=== PATIENT | female | born 1935 | race Two or more races ===

== ENCOUNTER 2020-07-03 19:34 | Inpatient (IN) | payer SELFPAY ==
[~2020-07-03] VITALS: Ht 157.5 cm; Wt 60.4 kg
[2020-07-03 19:45] VITALS: BP 140/70
--- NOTE | 2020-07-03 19:48 | NUR ---
ED Nurse Note: Patient was brought in by ambulance RA # [id number] from home c/o body aches x one week. Per EMS, patient was seen and discharged from another facility [facility] this week but s/s has not gotten better. Patient presented with distendnt abdomen, AAO x3, VSS at this time.
--- NOTE | 2020-07-03 19:55 | Emergency Room Report ---
History of Present Illness General Chief Complaint: Pain Present Illness HPI Disclaimer: Please note that this report is being documented using DRAGON technology. This can lead to erroneous entry secondary to incorrect interpretation by the dictating instrument. HPI: 85-year-old female history of hypertension presented with complaints of mild urinary frequency. Family reported hematochezia in addition to body pains but patient denies any body pains to me. No report of fever. No sick contacts. Denies abdominal pain. PMH: Hypertension PSH: Reviewed Social Hx: Denies smoking drinking or drug use Allergies: Coded Allergies: No Known Allergies (Unverified , 07/03/20) COVID-19 Screening Contact w/high risk pt: Yes Experienced COVID-19 symptoms?: Yes COVID-19 Testing performed AUTOMOTIVE VEHICLE INSPECTOR: No Patient History Reviewed Nursing Documentation: PMH: Agreed; PSxH: Agreed Nursing Documentation-PMH Hx Cardiac Problems: Yes Review of Systems All Other Systems: negative except mentioned in HPI Physical Exam Vital Signs Date Time Temp Pulse Resp B/P (MAP) Pulse Ox O2 Delivery O2 Flow Rate FiO2 07/03/20 19:31 98.4 74 16 140/70 (93) 98 Room Air Sp02 EP Interpretation: reviewed, normal General Appearance: well appearing, no apparent distress Head: normocephalic, atraumatic Eyes: bilateral eye PERRL, bilateral eye EOMI ENT: hearing grossly normal, moist mucus membranes Neck: full range of motion, supple Respiratory: lungs clear, normal breath sounds, no rhonchi, no respiratory distress, no retraction, no wheezing Cardiovascular #1: normal peripheral pulses, regular rate, rhythm, no murmur Gastrointestinal: non tender, soft, no guarding, other - Mild distention Neurologic: alert, oriented x3, no focal defects Skin: normal color, warm/dry Procedures Critical Care Time Critical Care Time Critical care is made on patient due to presentation with COVID-19 pneumonia requiring my acute intervention. Critical care time is 38 minutes and excludes procedures. Medical Decision Making Diagnostic Impression: Primary Impression: COVID-19 Additional Impressions: Multifocal pneumonia Generalized weakness ER Course MDM: Differential included but not limited to COVID-19 pneumonia, GI bleed, gastroenteritis, gastritis, anemia to name a few Clinical course-IV inserted, laboratory studies were sent. Laboratory studies demonstrated mild leukocytosis, electrolytes showed elevated BUN and creatinine. Patient did appear mildly dehydrated, blood pressure borderline but improved with IV fluids. Patient's COVID-19 testing was positive. Chest x-ray showed evidence of multifocal pneumonia. Given IV antibiotics, IV Decadron. Will be admitted to the medical floor. I believe she requires admission due to her borderline hypoxia, age with evidence of diffuse infiltrates on chest x-ray Labs - Laboratory Tests Test 07/03/20 19:40 White Blood Count 11.6 K/UL (4.8-10.8) H Red Blood Count 3.11 M/UL (4.20-5.40) L Hemoglobin 10.2 G/DL (12.0-16.0) L Hematocrit 29.6 % (37.0-47.0) L Mean Corpuscular Volume 95 FL (80-99) Mean Corpuscular Hemoglobin 32.7 PG (27.0-31.0) H Mean Corpuscular Hemoglobin Concent 34.3 G/DL (32.0-36.0) Red Cell Distribution Width 18.5 % (11.6-14.8) H Platelet Count 111 K/UL (150-450) L Mean Platelet Volume 8.2 FL (6.5-10.1) Neutrophils (%) (Auto) 80.2 % (45.0-75.0) H Lymphocytes (%) (Auto) 15.0 % (20.0-45.0) L Monocytes (%) (Auto) 4.4 % (1.0-10.0) Eosinophils (%) (Auto) 0.1 % (0.0-3.0) Basophils (%) (Auto) 0.3 % (0.0-2.0) Prothrombin Time 12.9 SEC (9.30-11.50) H Prothrombin Time INR 1.2 (0.9-1.1) H Activated Partial Thromboplast Time 47 SEC (23-33) H Sodium Level 134 MMOL/L (136-145) L Potassium Level 5.3 MMOL/L (3.5-5.1) H Chloride Level 106 MMOL/L (98-107) Carbon Dioxide Level 21 MMOL/L (21-32) Anion Gap 7 mmol/L (5-15) Blood Urea Nitrogen 65 mg/dL (7-18) H Creatinine 2.0 MG/DL (0.55-1.30) H Estimated Glomerular Filtration Rate 23.7 mL/min (>60) Glucose Level 121 MG/DL (74-106) H Lactic Acid Level 2.50 mmol/L (0.4-2.0) H Calcium Level 7.4 MG/DL (8.5-10.1) L Total Bilirubin 3.0 MG/DL (0.2-1.0) H Direct Bilirubin 2.4 MG/DL (0.0-0.3) H Aspartate Amino Transferase (AST) 113 U/L (15-37) H Alanine Aminotransferase (ALT) 43 U/L (12-78) Alkaline Phosphatase 398 U/L (46-116) H Total Creatine Kinase 108 U/L (26-308) Troponin I 0.045 ng/mL (0.000-0.056) Pro-B-Type Natriuretic Peptide Pending Total Protein 5.0 G/DL (6.4-8.2) L Albumin 1.7 G/DL (3.4-5.0) L Globulin 3.3 g/dL Albumin/Globulin Ratio 0.5 (1.0-2.7) L Lipase 131 U/L (73-393) Microbiology Date/Time Source Procedure Growth Status 07/03/20 19:40 Nasopharynx SARS-CoV-2 RdRp Gene Assay - Final Complete Plan-Plan, admission to the medical floor under Dr. Holloway EKG Diagnostic Results Rate: normal Rhythm: NSR ST Segments: no acute changes Rhythm Strip Diag. Results EP Interpretation: yes Rate: 67 Rhythm: NSR Chest X-Ray Diagnostic Results Chest X-Ray Diagnostic Results : Chest X-Ray Ordered: Yes # of Views/Limited/Complete: 1 View Indication: Shortness of Breath EP Interpretation: Yes Interpretation: other - Multifocal pneumonia, pleural effusion noted, no pneumothorax Electronically Signed by: Roland Schultz MD Last Vital Signs Date Time Temp Pulse Resp B/P (MAP) Pulse Ox O2 Delivery O2 Flow Rate FiO2 07/03/20 19:31 98.4 74 16 140/70 (93) 98 Room Air Disposition: ADMITTED INPATIENT Condition: Serious Roland Schultz M.D. Jul 03, 2020 19:55
--- NOTE | 2020-07-03 19:55 | NUR ---
ED Nurse Note: IV line was established on left AC 18ga, blood collected sent to lab
--- NOTE | 2020-07-03 20:05 | NUR ---
ED Nurse Note: patient stated can not provide urine right now, will try later
[2020-07-03 20:22] LABS: BASOPHILS % (AUTO) 0.3 % (0.0-2.0); EOSINOPHILS % (AUTO) 0.1 % (0.0-3.0); HEMATOCRIT 29.6 % (37.0-47.0); HEMOGLOBIN 10.2 G/DL (12.0-16.0); MEAN CORPUSCULAR VOLUME 95 FL (80-99); MONOCYTES % (AUTO) 4.4 % (1.0-10.0); NEUTROPHILS % (AUTO) 80.2 % (45.0-75.0); PLATELET COUNT 111 K/UL (150-450); RED BLOOD COUNT 3.11 M/UL (4.20-5.40); RED CELL DISTRIBUTION WIDTH 18.5 % (11.6-14.8); WHITE BLOOD COUNT 11.6 K/UL (4.8-10.8)
--- NOTE | 2020-07-03 20:30 | Diagnostic Imaging Report ---
EXAM: XR Chest, 1 View CLINICAL HISTORY: SOB TECHNIQUE: Frontal view of the chest. COMPARISON: No relevant prior studies available. FINDINGS: Lungs: Low lung volumes with multifocal opacities throughout both lungs. Prominent pulmonary vasculature with increased interstitial opacities bilaterally, consistent with interstitial pulmonary edema. Pleural space: Probable small right pleural effusion. No pneumothorax. Heart: Unremarkable. No cardiomegaly. Mediastinum: Unremarkable. Bones/joints: Unremarkable. IMPRESSION: Diffuse throughout both lungs consistent with alveolar edema and/or an acute infectious/inflammatory process such as multifocal pneumonia. Small right pleural effusion.
[2020-07-03 20:39] LABS: INR 1.2 (0.9-1.1)
[2020-07-03 20:58] LABS: ANION GAP 7 mmol/L (5-15); BLOOD UREA NITROGEN 65 mg/dL (7-18); CALCIUM 7.4 MG/DL (8.5-10.1); CARBON DIOXIDE 21 MMOL/L (21-32); CHLORIDE 106 MMOL/L (98-107); POTASSIUM 5.3 MMOL/L (3.5-5.1); SODIUM 134 MMOL/L (136-145)
[2020-07-03 21:08] LABS: ALANINE AMINOTRANSFERASE 43 U/L (12-78); ALBUMIN 1.7 G/DL (3.4-5.0); ALBUMIN/GLOBULIN RATIO 0.5 (1.0-2.7); ALKALINE PHOSPHATASE 398 U/L (46-116); ASPARTATE AMINO TRANSFERASE 113 U/L (15-37); CREATINE KINASE 108 U/L (26-308)
[2020-07-03 21:10] LABS: BILIRUBIN,DIRECT 2.4 MG/DL (0.0-0.3)
--- NOTE | 2020-07-03 21:22 | Diagnostic Imaging Report ---
EXAM: CT Abdomen and Pelvis Without Intravenous Contrast CLINICAL HISTORY: PAIN TECHNIQUE: Axial computed tomography images of the abdomen and pelvis without intravenous contrast. CTDI is 11.1 mGy and DLP is 396.3 mGy-cm. One or more of the following dose reduction techniques were used: automated exposure control, adjustment of the mA and/or kV according to patient size, use of iterative reconstruction technique. COMPARISON: No relevant prior studies available. FINDINGS: Lung bases: Unremarkable. No mass. No consolidation. Pleural space: Multifocal opacities are visualized throughout the lung bases. Small right and trace left pleural effusions. Coronary artery calcifications. Mediastinum: Small hiatal hernia. ABDOMEN: Liver: Cirrhosis with stigmata of portal venous hypertension including paraumbilical varices. Gallbladder and bile ducts: Cholelithiasis. Gallbladder is not well visualized due to surrounding ascites. No ductal dilation. Pancreas: Unremarkable. No ductal dilation. Spleen: Unremarkable. No splenomegaly. Adrenals: Unremarkable. No mass. Kidneys and ureters: Unremarkable. No obstructing stones. No hydronephrosis. Stomach and bowel: Unremarkable. No obstruction. No mucosal thickening. PELVIS: Appendix: No findings to suggest acute appendicitis. Bladder: There is a moderate cystocele. No stones. Reproductive: Unremarkable as visualized. ABDOMEN and PELVIS: Intraperitoneal space: Large volume ascites. Bones/joints: No acute fracture. No dislocation. Soft tissues: Moderate anasarca. Vasculature: Atherosclerotic calcifications of the aortoiliac arteries. Lymph nodes: Unremarkable. No enlarged lymph nodes. IMPRESSION: Cirrhosis with stigmata of portal venous hypertension and large volume ascites as well as moderate diffuse anasarca. Multifocal opacities throughout both lungs, which may indicate an acute infectious/inflammatory process such as multifocal pneumonia. Small right and trace left pleural effusion. Moderate cystocele. Cholelithiasis with obscuration of the margins of the gallbladder wall due to surrounding ascites. Right upper quadrant ultrasound could be performed to further evaluate if clinically indicated.
[2020-07-03] MEDS ORDERED: Azithromycin 500 MG in NS 275 ML IV ONE (21:30)
[2020-07-03] MEDS ORDERED: cefTRIAXone 1 GM in NS 55 ML IVPB ONE (22:15)
--- NOTE | 2020-07-03 23:01 | NUR ---
ED Nurse Note: pt resting in bed, pt states she is unable to provide urine at this time. will continue to monitor.
[2020-07-03 23:45] VITALS: BP 100/62
[2020-07-03] MEDS ORDERED: Enoxaparin 60mg Inj SUBQ ONE (23:45)
--- NOTE | 2020-07-03 23:51 | NUR ---
ED Nurse Note: unable to obtain UA. ERMD aware and at bedside.
--- NOTE | 2020-07-03 23:52 | NUR ---
ED Nurse Note: pt has multiple bruises to left back. ERMD aware.
--- NOTE | 2020-07-03 23:55 | NUR ---
ED Nurse Note: ERMD at bedside to investigate possible uterus prolapse.
[2020-07-04] VITALS (7 sets, daily range): BP systolic 88–105; BP diastolic 42–64
--- NOTE | 2020-07-04 00:45 | NUR ---
ED Nurse Note: All medications administered, pt tolerated well no ss of distress noted.
--- NOTE | 2020-07-04 01:35 | NUR ---
ED Nurse Note: pt resting in bed, no ss of distress noted. will continue to monitor.
--- NOTE | 2020-07-04 02:33 | NUR ---
ED Nurse Note: Report given to ELSIE Fisher on MS unit
--- NOTE | 2020-07-04 02:52 | NUR ---
TRANSFER TO FLOOR: Patient transferred to Med Surg unit per ERMD. Report given to ELSIE Fisher. Pt took all belongings. Pt transferred to unit with 1 METALLURGICAL TESTER.
--- NOTE | 2020-07-04 03:05 | NUR ---
NURSE NOTES: Received report from Genia ZIMMERMAN at ER.The patient is alert and oriented x2 [place] speaker. She is on Room air with Resp even and unlabored.She was moaning of some pain in her abdomen area. The abdomen is distended, CT abdomen was done and it shows Liver cirrhosis, Prolapse uterus. The skin is intact with patches of hyperpigmentation noted on the back. The left lower leg has a +2 edema. The left leg was raised up with a pillow as indicated.The patient is bedbound and was help with turning and re-positioning as indicated. The skin is intact no open sore noted at this time. The patient is on contact and droplet precaution due to positive Covid-19 test. The bed in low level, siderails up x2, call light within easy reach. Will followup with Dr. Holloway for admission order as indicated
--- NOTE | 2020-07-04 03:30 | NUR ---
NURSE NOTES: Received admission orders from Dr. Holloway, all orders were executed as indicated.
[2020-07-04] MEDS ORDERED: oxyCODONE 5mg IR tab ORAL PRN (04:45)
[2020-07-04] MEDS ORDERED: Milk of Magnesia 30ml Ud ORAL PRN (04:45)
--- NOTE | 2020-07-04 06:20 | NUR ---
NURSE NOTES: The patient has some level of anxiousness, she removed her yellow gown dropped it on the floor that she doesn't want it. A calm environment was provided. Will continue to monitor as indicated
--- NOTE | 2020-07-04 08:18 | NUR ---
NURSE NOTES: Social service consult got cancelled due to patient's son called and RN got his phone number. Tim Meyers [phone]. Dr. Holloway is aware.
[2020-07-04] MEDS: Docusate 250mg cap ORAL SCH ×3 (08:40→17:44)
[2020-07-04] MEDS: Spironolactone 50mg tab ORAL SCH ×2 (08:40→09:00)
[2020-07-04] MEDS ORDERED: Furosemide 40mg tab ORAL SCH (09:00)
--- NOTE | 2020-07-04 09:15 | History and Physical Report ---
DATE OF ADMISSION: 07/03/2020 CHIEF COMPLAINT: COVID pneumonia. HISTORY OF PRESENT ILLNESS: The patient is an 85-year-old female that was apparently brought in by family members with complaints of body aches, malaise and weakness. The patient is a poor historian, is unable to provide any history and family did not leave any contact number. On evaluation in the emergency room, the patient was COVID positive. She was noted to have ascites, leukocytosis. She had an elevated creatinine of 2 and elevated liver function tests. She is now admitted for further evaluation and care. PAST MEDICAL HISTORY: Unknown. PAST SURGICAL HISTORY: Unknown. CURRENT MEDICATIONS: Unknown. FAMILY HISTORY: Unknown. SOCIAL HISTORY: There is no known history of tobacco, ethanol, or drugs. REVIEW OF SYSTEMS: Unobtainable from the patient as she is confused. PHYSICAL EXAMINATION: VITAL SIGNS: Temperature 97.8, pulse 91, respirations 19, blood pressure 105/54. GENERAL: The patient is a thin, frail, elderly female, no distress. HEENT: Head, normocephalic, atraumatic. Sclerae anicteric. Oropharynx clear. NECK: Supple. HEART: Regular rate and rhythm. LUNGS: Clear anteriorly. ABDOMEN: Soft, distended with a fluid wave. LABORATORY DATA: Labs were reviewed. ASSESSMENT: This is an 85-year-old female. She appeared to have chronic liver disease and is now admitted with COVID-19 pneumonia. She is stable on room air though. PLAN: ID consultation. Start Aldactone. Check a hepatitis panel. We will try to contact family. Nba Holloway M.D. DR: GALEN JOB#: [id number] CC:
--- NOTE | 2020-07-04 11:02 | NUR ---
NURSE NOTES: Patient is restlessness and ex's are cold to touch. RN checked patient's BP, BP is 83/42, pulse is 57, o2sat is 84-85% in room air and patient noted with non-productive cough. RN elevated patient's lower ex's and monitored BP. BP is still low but patient is awake, talkative. Applied on o2@2L via NC. O2sat went up to 97%. Breathing is even and unlabored. RN called DR. Holloway and relayed patient's condition with new order to give albumin. Patient consumed 10% of breakfast and refused to take meds. Explained risks and benefits. Will continue to monitor.
--- NOTE | 2020-07-04 13:00 | NUR ---
NURSE NOTES: RN informed Dr. Holloway about prolapsed uterine, MD is aware with no new order.
--- NOTE | 2020-07-04 17:26 | NUR ---
NURSE NOTES: Patient's BP is 88/44, RN placed patient on trendelenburg position but no changes in BP. Patient denies chest pain or SOB, awake, verbally responsive. RN received order from Dr. Holloway to give NS 250cc bolus x1.
[2020-07-04] MEDS ORDERED: NS 250 ML IVPB SCH (17:30)
--- NOTE | 2020-07-04 19:00 | NUR ---
NURSE NOTES: given NS 250cc bolus earlier and latest BP is 104/64.Patient is stable.
--- NOTE | 2020-07-04 20:00 | NUR ---
NURSE HAND-OFF: Important Events on Shift: low BP, bolus albumin and NS given, latest BP 104/64, refused to eat or take meds. Patient Status: stable Diet: low sodium pureed Pending Orders: Pending Results/Labs: Pending MD notification: Latest Vital Signs: Temperature 98.8 , Pulse 62 , B/P 104 /64 , Respiratory Rate 18 , O2 SAT 93 , Room Air, O2 Flow Rate 2.0 . Vital Sign Comment: Latest Madden Fall Score: 45 Fall Risk: High Risk Safety Measures: Call light Within Reach, Bed Alarm Zone 2, Side Rails Side Rails x2, Bed position Low and Locked. Fall Precautions: Yellow Socks Yellow Gown Door Sign Patient Fall Education Report given to Phillip and endorsed plan of care.
--- NOTE | 2020-07-04 20:02 | NUR ---
The patient is alert and orient x1 was noted with confusion and agitations and a calm environment was provided as indicated.The patient still has a distended abdomen and keeps his IV line on the left AC 18g that is patent and asymptomatic. She has poor po intake and was encouraged to drink more fluids.The bed in low and locked level, call light within easy reach. will continue to monitor as indicated.
[2020-07-05] VITALS (7 sets, daily range): BP systolic 66–104; BP diastolic 39–57
--- NOTE | 2020-07-05 07:15 | NUR ---
NURSE HAND-OFF: Important Events on Shift:Hypotension, continous 2 liters via NC Patient Status: Diet: Pending Orders: Pending Results/Labs: Pending MD notification: Latest Vital Signs: Temperature 97.2 , Pulse 61 , B/P 104 /51 , Respiratory Rate 18 , O2 SAT 93 , Room Air, O2 Flow Rate 2.0 . Vital Sign Comment: Latest Madden Fall Score: 45 Fall Risk: High Risk Safety Measures: Call light Within Reach, Bed Alarm Zone 2, Side Rails Side Rails x2, Bed position Low and Locked. Fall Precautions: Yellow Socks Yellow Gown Door Sign Patient Fall Education Report given to .
[2020-07-05] MEDS ORDERED: NS 250 ML IVPB SCH (08:30)
--- NOTE | 2020-07-05 08:35 | NUR ---
NURSE NOTES: 8:00am RN made around patient is resting in bed noted with pursed lip breathing, change of LOC,patient spontaneously opens her eyes but does not follow commands,non-verbal @ this time.Brazilian speaking skilled nursing professional tried to talk to the patient in Brazilian but patient is non-verbal. Upper and lower ex's cold to touch,still with edema 2(+). weak pulse with 43-47 pulse and O2sat of 84-91% with oxygen 5L/min with NC. BP is 91/57.Blood sugar is 101mg/dl, no s/s of bleeding,patient's abdomen is still distended. RN paged doctor Holloway and relayed patient's condition with new order to do stat ABG, EKG, labs. 0820 RT was called for ABG, abnormal result and EKG done. Labs were ordered 08:35 TEACHER LEARNING DISABLED was called due to change of LOC, bradycardia and abnormal ABG result with O2sat of 88%, TEACHER LEARNING DISABLED arrived and took over. RN gave report to the TEACHER LEARNING DISABLED nurse. [address] Holloway's order. BP is 94/52, pulse 44-47
--- NOTE | 2020-07-05 08:49 | NUR ---
NURSE NOTES: Received order to transfer patient to [facility]. Charge nurse and warehouse general laborer is aware.Awaiting for the bed.
--- NOTE | 2020-07-05 09:00 | NUR ---
NURSE NOTES: Patient noted with ecchymosis on left and right hip and upper and lower back, no episode of fall or bump,patient's PLT is 111 with liver cirrhosis and patient got lovenox 50mg in the ER on 07/03 night. No s/s s/s of bleeding @ this time. Re-position done, applied optifoam and heels are floated on pillows to off the load.
--- NOTE | 2020-07-05 09:08 | General Progress Note ---
Subjective ROS Limited/Unobtainable: No Constitutional: Reports: malaise, weakness HEENT: Reports: no symptoms Cardiovascular: Reports: no symptoms Respiratory: Reports: shortness of breath Gastrointestinal/Abdominal: Reports: abdomen distended Genitourinary: Reports: no symptoms Neurologic/Psychiatric: Reports: pre-existing deficit Endocrine: Reports: no symptoms Hematologic/Lymphatic: Reports: anemia Allergies: Coded Allergies: No Known Allergies (Unverified , 07/03/20) All Systems: reviewed and negative except above Subjective more lethargic and drowsy. abg with met acidosis. BP dropping. HR dropping. on steroids. now on o2 Objective Last 24 Hour Vital Signs Date Time Temp Pulse Resp B/P (MAP) Pulse Ox O2 Delivery O2 Flow Rate FiO2 07/05/20 04:00 97.2 61 104/51 (68) 07/05/20 00:00 98.1 57 96/52 (67) 07/04/20 21:00 Nasal Cannula 2.0 07/04/20 20:00 98.5 58 98/59 (72) 07/04/20 19:00 62 104/64 (77) 07/04/20 16:00 98.8 57 18 88/44 (59) 93 07/04/20 12:00 98.1 58 19 91/48 (62) 91 Intake and Output 07/04/20 07/05/20 19:00 07:00 Intake Total 700 ml 75 ml Balance 700 ml 75 ml Intake Oral 75 ml IV Total 350 ml Other 350 ml # Voids 3 # Bowel Movements 1 1 Laboratory Tests 07/04/20 11:30: POC Whole Blood Glucose 125H 07/05/20 08:19: Arterial Blood pH 7.231*L, Arterial Blood Partial Pressure CO2 23.8*L, Arterial Blood Partial Pressure O2 70.9L, Arterial Blood HCO3 9.8*L, Arterial Blood Oxygen Saturation 91.5L, Arterial Blood Base Excess -16.1*L, Yogesh Test Positive 07/05/20 08:39: POC Whole Blood Glucose 101 Height (Feet): 5 Height (Inches): 2.00 Weight (Pounds): 133 General Appearance: lethargic, confused Respiratory/Chest: lungs clear Abdomen: normal bowel sounds, soft, distended Edema: no edema noted Leg (L), no edema noted Leg (R) Neurologic: disoriented, unresponsive Assessment/Plan Problem List: (1) Shock ICD Codes: R57.9 - Shock, unspecified SNOMED: 98857175 (2) Cirrhosis ICD Codes: K74.60 - Unspecified cirrhosis of liver SNOMED: 48918650 (3) Diabetes ICD Codes: E11.9 - Type 2 diabetes mellitus without complications SNOMED: 96739603 (4) COVID-19 ICD Codes: U07.1 - COVID-19 SNOMED: 432910835 (5) Multifocal pneumonia ICD Codes: J18.9 - Pneumonia, unspecified organism SNOMED: 474414733 Status: deteriorating Assessment/Plan: d/w son leonora pt with worsening shock and hypotension- likely due to covid agrees to conservative management no intubation or chest compression bipap ?pressors aggressive unlikely to help. will likely make pt more uncomfortable in her last moments Nba Holloway MD Jul 05, 2020 09:08
[2020-07-05] MEDS ORDERED: Vancomycin 1 GM in D5W 275 ML IVPB SCH (09:30)
[2020-07-05 09:45] LABS: CALCIUM 7.3 MG/DL (8.5-10.1); CREATININE 1.8 MG/DL (0.55-1.30); POTASSIUM 5.9 MMOL/L (3.5-5.1)
--- NOTE | 2020-07-05 09:51 | NUR ---
NURSE NOTES: Received orders from Dr. Vasquez to d/c all meds, paracentesis, IVF, give morphine ativan PRN due to patient's family chose comfort care for the patient. Addendum: 07/05/20 at 0953 by JEANCARLOS COHEN RN Per Dr. vasquez, no family visit since all the family has covid symptoms.
[2020-07-05 09:55] LABS: ALBUMIN/GLOBULIN RATIO 0.7 (1.0-2.7); BILIRUBIN,TOTAL 3.4 MG/DL (0.2-1.0)
[2020-07-05 09:56] LABS: BILIRUBIN,DIRECT 2.4 MG/DL (0.0-0.3)
[2020-07-05] MEDS ORDERED: LORazepam Inj 2mg/ml 1ml IV PRN (10:00)
[2020-07-05] MEDS ORDERED: Morphine Sulfate 2mg/ml Inj(IV/IM USE ONLY) IVP PRN (10:00)
[2020-07-05] MEDS ORDERED: Piperacillin/Tazobactam 3.375 GM in NS 110 ML IVPB SCH (11:00)
[2020-07-05 12:16] LABS: HEMATOCRIT 33.8 % (37.0-47.0); HEMOGLOBIN 10.8 G/DL (12.0-16.0); MEAN CORPUSCULAR VOLUME 103 FL (80-99); PLATELET COUNT 79 K/UL (150-450); RED BLOOD COUNT 3.28 M/UL (4.20-5.40); RED CELL DISTRIBUTION WIDTH 18.5 % (11.6-14.8); WHITE BLOOD COUNT 15.4 K/UL (4.8-10.8)
--- NOTE | 2020-07-05 13:00 | NUR ---
NURSE NOTES: Patient is in bed, per FLACC pain scale, no s/s of pain @ this time. Will continue to monitor.
--- NOTE | 2020-07-05 15:37 | NUR ---
NURSE NOTES: RN made Dr. Holloway aware of abnormal lab results with no new order. Patient was desatting with NC with 5L and ventri mask with 55% fio2 with 14L oxygen. RT was called and patient was placed with non-rebreather mask with 15L with O2sat of 95%.
--- NOTE | 2020-07-05 16:30 | NUR ---
NURSE NOTES: Patient's bp is 66/42, patient is awake, non-verbal. RN spoke to Mr. Meyers patient's son and updated patient's condition and RN have patient talk family on the phone.
--- NOTE | 2020-07-05 18:00 | NUR ---
NURSE NOTES: Re-position done, no skin break down. Patient is resting, no s/s of pain per FLACC pain scale.
--- NOTE | 2020-07-05 19:20 | NUR ---
NURSE NOTES: Received report from Abida Beaver RN. Pt is on 15L nonrebreather mask. Bed locked and in lowest position, call light within reach, pt is sleeping. Will continue to monitor.
--- NOTE | 2020-07-05 19:27 | NUR ---
NURSE HAND-OFF: Important Events on Shift: code status changed to DNR/DNI, on non-rebreather mask. abnormal labs, All meds were d/c Patient Status: Diet: low sodium pureed diet Pending Orders: Pending Results/Labs: Pending MD notification: Latest Vital Signs: Temperature 98.6 , Pulse 43 , B/P 66 /42 , Respiratory Rate 22 , O2 SAT 95 , Room Air, O2 Flow Rate 4.0 . Vital Sign Comment: Latest Madden Fall Score: 60 Fall Risk: High Risk Safety Measures: Call light Within Reach, Bed Alarm Zone 2, Side Rails Side Rails x2, Bed position Low and Locked. Fall Precautions: Yellow Socks Yellow Gown Door Sign Patient Fall Education Report given to Romy and endorsed plan of care.
[2020-07-06] VITALS: BP 78/56
[2020-07-06 04:00] VITALS: BP 95/43
--- NOTE | 2020-07-06 06:56 | NUR ---
NURSE HAND-OFF: Important Events on Shift:none Patient Status: dnr/dni Diet: low sodium pureed Pending Orders: Pending Results/Labs: Pending MD notification: Latest Vital Signs: Temperature 96.8 , Pulse 52 , B/P 95 /43 , Respiratory Rate 18 , O2 SAT 95 , Room Air, O2 Flow Rate 15.0 . Vital Sign Comment: Latest Madden Fall Score: 35 Fall Risk: Medium Risk Safety Measures: Call light Within Reach, Bed Alarm Zone 2, Side Rails Side Rails x2, Bed position Low and Locked. Fall Precautions: Yellow Socks Yellow Gown Door Sign Patient Fall Education Report given to . Addendum: 07/06/20 at 0707 by Romy Burch RN Report given to ELSIE Savage.
--- NOTE | 2020-07-06 07:23 | NUR ---
NURSE NOTES: Report received from Romy RN/Theodore RN, rounds made. Patient sleeping, not arousable to name/touch. Respirations slightly labored on O2 15 L venti mask. Skin cool. Abdomen distended. Will provide comfort care (DNR/DNI). LAC saline lock intact. Patient remains safe. Bed in lowest position, will continue to monitor.
[2020-07-06 08:00] VITALS: BP 64/22
--- NOTE | 2020-07-06 08:38 | NUR ---
NURSE NOTES: Dr. Holloway notified of vitals BP 64/22, T97.6 P110 RR22 O2 sats 100% on 15L venti mask, patient is on comfort care, no further orders.
--- NOTE | 2020-07-06 08:44 | General Progress Note ---
Subjective ROS Limited/Unobtainable: Yes Constitutional: Reports: malaise, weakness HEENT: Reports: no symptoms Cardiovascular: Reports: no symptoms Respiratory: Reports: shortness of breath Gastrointestinal/Abdominal: Reports: no symptoms Genitourinary: Reports: no symptoms Neurologic/Psychiatric: Reports: no symptoms Endocrine: Reports: no symptoms Hematologic/Lymphatic: Reports: no symptoms Allergies: Coded Allergies: No Known Allergies (Unverified , 07/03/20) All Systems: reviewed and negative except above Subjective +sob on nrb mask. d/w family at [facility]. 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 very poor prognosis. family requesting comfort rx only Objective Last 24 Hour Vital Signs Date Time Temp Pulse Resp B/P (MAP) Pulse Ox O2 Delivery O2 Flow Rate FiO2 07/06/20 04:00 96.8 52 18 95/43 (60) 95 07/06/20 00:00 97.2 53 22 78/56 (63) 98 07/05/20 21:00 Non-Rebreather 15.0 07/05/20 20:00 96.8 46 22 101/39 (59) 97 07/05/20 16:00 43 22 66/42 (50) 95 07/05/20 12:00 47 22 95/53 (67) 90 07/05/20 09:00 Nasal Cannula 4.0 Intake and Output 07/05/20 07/06/20 19:00 07:00 Intake Total 250 ml 50 ml Balance 250 ml 50 ml Intake Oral 50 ml IV Total 250 ml Laboratory Tests 07/05/20 09:00: Sodium Level 139, Potassium Level 5.9H, Chloride Level 112H, Carbon Dioxide Level 11L, Anion Gap 16H, Blood Urea Nitrogen 68H, Creatinine 1.8H, Estimat Glomerular Filtration Rate 26.8, Glucose Level 108H, Calcium Level 7.3L, Total Bilirubin 3.4H, Direct Bilirubin 2.4H, Aspartate Amino Transf (AST/SGOT) 287H, Alanine Aminotransferase (ALT/SGPT) 66, Alkaline Phosphatase 314H, Ammonia 29, Total Protein 4.9L, Albumin 2.0L, Globulin 2.9, Albumin/Globulin Ratio 0.7L 07/05/20 11:00: White Blood Count 15.4H, Red Blood Count 3.28L, Hemoglobin 10.8L, Hematocrit 33.8L, Mean Corpuscular Volume 103H, Mean Corpuscular Hemoglobin 33.1H, Mean Corpuscular Hemoglobin Concent 32.1, Red Cell Distribution Width 18.5H, Platelet Count 79L, Mean Platelet Volume 8.1, Neutrophils (%) (Auto) , Lymphocytes (%) (Auto) , Monocytes (%) (Auto) , Eosinophils (%) (Auto) , Basophils (%) (Auto) , Differential Total Cells Counted 100, Neutrophils % (Manual) 95H, Lymphocytes % (Manual) 4L, Monocytes % (Manual) 1, Eosinophils % (Manual) 0, Basophils % (Manual) 0, Band Neutrophils 0, Platelet Estimate DecreasedL, Platelet Morphology Normal, Anisocytosis 2+ Height (Feet): 5 Height (Inches): 2.00 Weight (Pounds): 133 General Appearance: no apparent distress Assessment/Plan Problem List: (1) Shock ICD Codes: R57.9 - Shock, unspecified SNOMED: 71186180 (2) Cirrhosis ICD Codes: K74.60 - Unspecified cirrhosis of liver SNOMED: 69375886 (3) Diabetes ICD Codes: E11.9 - Type 2 diabetes mellitus without complications SNOMED: 94498669 (4) COVID-19 ICD Codes: U07.1 - COVID-19 SNOMED: 138687869 (5) Multifocal pneumonia ICD Codes: J18.9 - Pneumonia, unspecified organism SNOMED: 651760492 Status: deteriorating Assessment/Plan: comfort focused rx Nba Holloway MD Jul 06, 2020 08:44
[2020-07-06 12:00] VITALS: BP 110/45
--- NOTE | 2020-07-06 14:58 | NUR ---
NURSE NOTES: Patient , pronounced by assistant executive housekeeper. Message left with MD Holloway. Director Rodger notified and [facility] notified. Will notify family.
--- NOTE | 2020-07-06 15:05 | NUR ---
NURSE NOTES: Post mortem care provided, skin care provided gently. IV saline lock removed. O2 venturi mask removed. All belongings placed in belonging bag and labeled. Patient placed in body bag. Awaiting for morgue strip picker.
--- NOTE | 2020-07-06 15:15 | NUR ---
PRONOUNCEMENT: No Code. Called to pronounce patient. Absence of spontaneous respirations, no cardiac or breath sounds on auscultation. Pupils fixed and dilated. No carotid pulse or chest movement. Patient at 1458. Dr Holloway notified per Janette Miles RN . Family will be notified by Janette Miles/Dr Holloway.
--- NOTE | 2020-07-06 15:52 | NUR ---
NURSE NOTES: [facility] [employer] called squeezer operator Meeta stated [facility] will not pursue donation. Ref# [id number].
--- NOTE | 2020-07-07 17:04 | NUR ---
CASE MANAGEMENT:INITIAL REVIEW 07/06/20 85 YR OLD FEMALE BIBA FROM HOME CC;PAIN SI;COVID PNEUMONIA 98.4 74 16 96/47 98% ON RA WBC 11.6 PLT 111 NA 134 K+ 5.3 BUN 65 C R 2.0 CA 7.4 T-BILI 3.0 D-BILI 2.4 AST 113 ALP 398 ALB 1.7 PT 12.9 INR 1.2 APTT 47 D-DIMER 6.59 COVID RAPID ~ POSITIVE CXR ~ Diffuse throughout both lungs consistent with alveolar edema and/or an acute infectious/inflammatory process such as multifocal pneumonia. Small right pleural effusion. IS;IVF NS BOLUS ZITHROMAX IV DECADRON IV ROCEPHIN IV LOVENOX SQ ADMITTED TO MED SURG MED SURG STATUS
--- NOTE | 2020-07-08 12:21 | Discharge Summary ---
Discharge Summary Discharge Summary _ SUMMARY DATE OF ADMISSION: 07/03/2020 DATE OF EXPIRATION: 07/06/2020 REASON FOR ADMISSION: 85 years old female with past medical history of hypertension, chronic liver disease , presented to emergency room initially with a complaint of urinary frequency. Family also reported hematochezia and body pains. No reports of fever. No abdominal pain. Upon evaluation patient was borderline hypoxic. Chest x-ray revealed evidence of multifocal pneumonia. Rapid COVID-19 was positive. Laboratory work-up revealed mild leukocytosis , elevated BUN and creatinine. Patient appeared mildly dehydrated . Patient received IV fluids, empiric antibiotic, IV Decadron and admitted for further management HOSPITAL COURSE: Patient admitted to medical surgical floor . Patient was kept in isolation . Supplemental oxygen was on board as needed to keep pulse oximetry above 92% Pulmonary toilet provided Patient started on empiric antibiotic Leukocytosis worsened. GI prophylaxis provided. Patient initially started on diuresis and received Lasix and Aldactone. Volumes were closely monitored. Patient received albumin. Patient later became hypotensive , diuresis stopped. Patient initially was on nasal cannula, then subsequently placed on nonrebreather mask.. Blood cultures were negative. CODE STATUS changed to DNR/DNI on 1220 ABG shows metabolic acidosis Patient became more lethargic and drowsy . Liver enzymes were trended up along with total bilirubin Patient showed worsening hemodynamics /hypotension , likely due to COVID infection. Patient condition , poor prognosis and goals of care were discussed with patient's son . CODE STATUS was changed to DNR/DNI. Patient condition continued to deteriorate. Comfort focused care provided. Patient was pronounced at 14:58 on 07/06. Cause of : cardiopulmonary arrest. FINAL DIAGNOSES: COVID-19 pneumonia Acute/chronic kidney disease Acute hypoxemic respiratory failure Shock Chronic liver disease Cirrhosis I have been assigned to dictate discharge summary for this account. I was not involved in the patient's management. Rema Cortes NP Jul 08, 2020 12:21
== END 2020-07-06 14:58 | disposition expired | DRG 177 ==
LOC: EDBD 19:34 → EMR 19:45 → 4E 21:30 → EDBEDREQ 07-04 01:00
DX: U07.1 COVID-19 (principal); J12.89 Other viral pneumonia; J96.01 Acute respiratory failure with hypoxia; R57.9 Shock, unspecified; N17.9 Acute kidney failure, unspecified; K74.60 Unspecified cirrhosis of liver; I10 Essential (primary) hypertension; Z66 Do not resuscitate; E86.0 Dehydration; Z51.5 Encounter for palliative care; I12.9 Hypertensive chronic kidney disease with stage 1 through stage 4 chronic kidney disease, or unspecified chronic kidney disease; N18.9 Chronic kidney disease, unspecified; E11.22 Type 2 diabetes mellitus with diabetic chronic kidney disease
CPT/HCPCS: 36415; 71045; 74176; 80053; 82140; 82248; 82550; 82728; 82803; 82962; 83605; 83690; 83880; 84484; 85007; 85025; 85379; 85610; 85730; 86140; 87040; 93005; 96361; 96365; 96367; 96375; 99291; U0002